=== PATIENT | male | born 1985 | race Caucasian/White ===

== ENCOUNTER 2021-07-28 15:39 | Emergency (ER) | payer MEDICAID, OTHER ==
[~2021-07-28] VITALS: Ht 182.9 cm; Wt 85.8 kg
[2021-07-28 16:29] VITALS: BP 135/90
[2021-07-28] MEDS ORDERED: CEPH-585 PO (16:41)
[2021-07-28] MEDS ORDERED: CLOT15CR73 TOP (16:45)
== END 2021-07-28 17:41 | disposition home or self-care (01) ==
LOC: ER 15:39
DX: L03.116 Cellulitis of left lower limb (principal); L03.115 Cellulitis of right lower limb; Z86.14 Personal history of Methicillin resistant Staphylococcus aureus infection; Z56.0 Unemployment, unspecified; Z59.0 Homelessness; Z79.2 Long term (current) use of antibiotics; Z79.899 Other long term (current) drug therapy
CPT/HCPCS: 99283

== ENCOUNTER 2021-08-05 10:43 | Emergency (ER) | payer MEDICAID, OTHER ==
[~2021-08-05] VITALS: Ht 182.9 cm; Wt 81.8 kg
[~2021-08-05 10:43] MED LIST: CEPH-585 PO; CLOT15CR73 TOP
[2021-08-05 11:13] VITALS: BP 125/88
[2021-08-05] MEDS ORDERED: SULF1TAB45 PO (11:42)
== END 2021-08-05 11:45 | disposition home or self-care (01) ==
LOC: ER 10:43
DX: S90.921D Unspecified superficial injury of right foot, subsequent encounter (principal); Z86.14 Personal history of Methicillin resistant Staphylococcus aureus infection; Z56.0 Unemployment, unspecified; Z59.0 Homelessness; Z79.2 Long term (current) use of antibiotics; X58.XXXD Exposure to other specified factors, subsequent encounter
CPT/HCPCS: 99283

== ENCOUNTER 2021-11-18 17:01 | Emergency (ER) | payer MEDICAID ==
[~2021-11-18 17:01] MED LIST changes: -CEPH-585 PO
== END 2021-11-18 17:41 | disposition home or self-care (01) ==
LOC: ER 17:02
DX: F10.129 Alcohol abuse with intoxication, unspecified (principal); R45.1 Restlessness and agitation; Z86.14 Personal history of Methicillin resistant Staphylococcus aureus infection; Z56.0 Unemployment, unspecified; Z59.00 Homelessness unspecified; Z79.2 Long term (current) use of antibiotics; Y90.9 Presence of alcohol in blood, level not specified
CPT/HCPCS: 99283

== ENCOUNTER 2022-09-02 10:24 | Emergency (ER) | payer MEDICAID ==
[~2022-09-02] VITALS: Ht 182.9 cm; Wt 86.4 kg
[2022-09-02 10:37] VITALS: BP 138/89
--- NOTE | 2022-09-02 11:47 | NUR ---
RING REMOVED FROM FINGER
== END 2022-09-02 12:08 | disposition home or self-care (01) ==
LOC: ER 10:25
DX: S60.450A Superficial foreign body of right index finger, initial encounter (principal); Z86.14 Personal history of Methicillin resistant Staphylococcus aureus infection; Z79.899 Other long term (current) drug therapy; X58.XXXA Exposure to other specified factors, initial encounter; Y93.89 Activity, other specified; Y92.89 Other specified places as the place of occurrence of the external cause; Y99.8 Other external cause status
CPT/HCPCS: 99284

== ENCOUNTER 2022-09-06 12:53 | Emergency (ER) | payer MEDICAID ==
[~2022-09-06] VITALS: Ht 182.9 cm; Wt 90.0 kg
[2022-09-06 13:05] VITALS: BP 120/80
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
--- NOTE | 2022-09-06 13:38 | NUR ---
Dr. Mckinney aware of incident
== END 2022-09-06 13:35 | disposition left against medical advice (07) ==
LOC: ER 12:53
DX: H57.12 Ocular pain, left eye (principal); Z53.21 Procedure and treatment not carried out due to patient leaving prior to being seen by health care provider

== ENCOUNTER 2022-09-06 19:06 | Emergency (ER) | payer MEDICAID ==
[~2022-09-06] VITALS: Ht 182.9 cm; Wt 73.3 kg
[2022-09-06 19:27] VITALS: BP 117/81
[2022-09-06 20:14] LABS: BASOPHILS % (AUTO) 0.4 % (0-1); EOSINOPHILS # (AUTO) 0.2 X10'3 (0-0.9); EOSINOPHILS % (AUTO) 1.9 % (0-6); HEMATOCRIT 41.4 % (42.0-52.0); HEMOGLOBIN 14.6 g/dl (14.0-17.9); LYMPHOCYTES # (AUTO) 3.2 X10'3 (1.1-4.8); LYMPHOCYTES % (AUTO) 35.6 % (21-51); MEAN CORPUSCULAR HEMOGLOBIN 33.6 PG (27.0-31.0); MEAN CORPUSCULAR HGB CONC 35.3 g/dL (33.0-36.5); MEAN CORPUSCULAR VOLUME 95.2 FL (78-98); MEAN PLATELET VOLUME 7.7 FL (7.4-10.4); MONOCYTES # (AUTO) 0.9 X10'3 (0-0.9); MONOCYTES % (AUTO) 10.5 % (2-12); NEUTROPHILS # (AUTO) 4.6 X10'3 (1.8-7.7); NEUTROPHILS % (AUTO) 51.6 % (42-75); PLATELET COUNT 330 X10'3 (140-440); RED BLOOD COUNT 4.35 X10'6 (4.70-6.10); RED CELL DISTRIBUTION WIDTH 13.7 % (11.5-14.5); WHITE BLOOD COUNT 8.9 X10'3 (4.5-11.0)
[2022-09-06 20:22] LABS: ANION GAP 9 (8-16); BILIRUBIN,TOTAL 1.2 MG/DL (0.1-1.0); BLOOD UREA NITROGEN 23 MG/DL (7-18); BUN/CREATININE RATIO 20.7 (5.4-32.0); CALCIUM 9.1 MG/DL (8.5-10.1); CHLORIDE 102 MMOL/L (99-107); CREATININE 1.11 MG/DL (0.60-1.10); GLUCOSE 100 MG/DL (70-104); POTASSIUM 3.6 MMOL/L (3.5-5.1); SODIUM 140 MMOL/L (135-145); TOTAL CARBON DIOXIDE 28.7 MMOL/L (24-32); eGFR 75 ML/MIN
[2022-09-06 20:23] LABS: ALANINE AMINOTRANSFERASE 32 U/L (12-78); ALBUMIN 4.5 G/DL (3.4-5.0); ALBUMIN/GLOBULIN RATIO 1.2 (1.1-1.5); ALKALINE PHOSPHATASE 104 IU/L (46-116); ASPARTATE AMINO TRANSFERASE 51 U/L (10-37); TOTAL PROTEIN 8.2 G/DL (6.4-8.2)
[2022-09-06 20:32] LABS: ETHANOL < 0.010 GM/DL (0.0-0.010)
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
== END 2022-09-07 01:33 | disposition left against medical advice (07) ==
LOC: ER 19:06
DX: S01.81XA Laceration without foreign body of other part of head, initial encounter (principal); Z53.21 Procedure and treatment not carried out due to patient leaving prior to being seen by health care provider; X58.XXXA Exposure to other specified factors, initial encounter; Y93.9 Activity, unspecified; Y92.9 Unspecified place or not applicable; Y99.9 Unspecified external cause status
CPT/HCPCS: 36415; 80053; 80320; 84443; 85025

== ENCOUNTER 2022-09-09 01:37 | Emergency (ER) | payer MEDICAID ==
[~2022-09-09] VITALS: Ht 182.9 cm; Wt 90.9 kg
[2022-09-09 02:05] VITALS: BP 126/78
[2022-09-09] MEDS ORDERED: LIDOcaine 1% w/EPI 1:100,000 30ml vial (MDV) ONE (04:29)
[2022-09-09] MEDS ORDERED: tetanus & diphtheria toxoid (Td) vaccine 0.5ml IMVAC ONE (04:55)
[2022-09-09] MEDS ORDERED: TETanus/Pertussis (Acell)/Diphther VAC/PF (Tdap-Adult) 0.5ml syringe IMVAC ONE (05:05)
== END 2022-09-09 05:17 | disposition home or self-care (01) ==
LOC: ER 01:38
DX: S61.412A Laceration without foreign body of left hand, initial encounter (principal); Z86.14 Personal history of Methicillin resistant Staphylococcus aureus infection; Z59.00 Homelessness unspecified; Z56.0 Unemployment, unspecified; Z79.2 Long term (current) use of antibiotics; W45.8XXA Other foreign body or object entering through skin, initial encounter; Y93.89 Activity, other specified; Y92.89 Other specified places as the place of occurrence of the external cause; Y99.8 Other external cause status
CPT/HCPCS: 12002; 90471; 90715; 99283; J3490; J7030

== ENCOUNTER 2022-09-19 16:49 | Emergency (ER) | payer MEDICAID ==
[~2022-09-19] VITALS: Ht 182.9 cm; Wt 84.1 kg
[2022-09-19 16:54] VITALS: BP 125/83
== END 2022-09-19 19:22 | disposition home or self-care (01) ==
LOC: ER 16:49
DX: S61.411D Laceration without foreign body of right hand, subsequent encounter (principal); Z48.02 Encounter for removal of sutures; Z86.14 Personal history of Methicillin resistant Staphylococcus aureus infection; Z59.00 Homelessness unspecified; Z56.0 Unemployment, unspecified; Z79.2 Long term (current) use of antibiotics; X58.XXXD Exposure to other specified factors, subsequent encounter
CPT/HCPCS: 99281